=== PATIENT | male | born 1960 | race Caucasian/White ===

== ENCOUNTER 2024-02-03 15:14 | Inpatient (IN) ==
[2024-02-03] MEDS ORDERED: IOPAMIDOL 100 ML BOTTLE IV ONE (15:15)
[2024-02-03] MEDS: ASPIRIN 81 MG TAB.CHEW CHEWED ONE (15:38)
[2024-02-03] MEDS: NITROGLYCERIN 0.4 MG TAB.SUBL SL ONE (15:38)
[2024-02-03 15:47] LABS: Basophils # (Auto) 0.02 K/mcL (0.00-0.30); Basophils % (Auto) 0.2 % (0.0-2.0); Eosinophils # (Auto) 0.08 K/mcL (0.00-0.70); Eosinophils % (Auto) 0.9 % (0.0-7.0); Hematocrit 55.5 % (40.1-51.0); Hemoglobin 19.2 g/dL (13.7-17.5); Lymphocytes # (Auto) 2.44 K/mcL (1.50-4.80); Lymphocytes % (Auto) 27.6 % (15.5-49.0); Mean Cell Volume 89.8 fL (80.0-100.0); Mean Corpuscular HGB Conc 34.6 g/dL (31.0-36.0); Mean Platelet Volume 10.4 fL (8.8-12.5); Monocytes # (Auto) 0.73 K/mcL (0.10-0.90); Monocytes % (Auto) 8.2 % (1.0-12.0); Neutrophils % (Auto) 62.9 % (38.0-78.0); Platelet Count 195 K/mcL (140-440); RBC 6.18 M/mcL (4.63-6.08); Red Cell Distribution Width 12.5 % (11.5-14.5); WBC 8.9 K/mcL (4.5-11.0)
[2024-02-03 16:34] LABS: proBNP < 36.0 pg/mL (<125.0)
[2024-02-03 16:36] LABS: Prothrombin Time 13.5 sec (11.9-14.5)
[2024-02-03 16:37] LABS: ALT/SGPT 49 U/L (<40); AST/SGOT 28 U/L (<40); Albumin 4.2 gm/dL (3.2-5.2); Albumin/Globulin Ratio 1.6 (1.0-2.3); Alkaline Phosphatase 89 U/L (39-117); Bilirubin,Total 1.2 mg/dL (0.1-1.0); Blood Urea Nitrogen 8 mg/dL (8-23); Calcium 9.1 mg/dL (8.6-10.4); Carbon Dioxide 23 mmol/L (22-30); Chloride 102 mmol/L (96-108); Globulin 2.6 gm/dL (2.2-3.7); Glomerular Filtration Rate 92; Glucose 210 mg/dL (70-105); Potassium 3.9 mmol/L (3.3-5.1); Sodium 138 mmol/L (133-145)
[2024-02-03] MEDS: fentaNYL 100 MCG/2 ML VIAL IV ONE ×2 (16:44→19:15)
[2024-02-03] MEDS: NITROGLYCERIN/D5W 25 MG/250 ML BOTTLE IV SCH (17:43)
[2024-02-03] MEDS: 0.9 % SODIUM CHLORIDE 250 ML IV SCH (17:44)
[2024-02-03] MEDS: MAG HYDROX/AL HYDROX/SIMETH 30 ML ORAL.SUSP PO ONE (19:15)
[2024-02-03] MEDS: PANTOPRAZOLE 40 MG VIAL IV ONE (19:15)
[2024-02-03] MEDS: KETOROLAC 30 MG/ML VIAL IV ONE (19:16)
[2024-02-03] MEDS: ONDANSETRON 4 MG/2 ML VIAL IV ONE ×2 (20:34→20:49)
[2024-02-03] MEDS ORDERED: DEXTROSE 50% 50 ML VIAL IV PRN (21:15)
[2024-02-03] MEDS ORDERED: LACTULOSE 20 GM/30 ML ORAL.SOL PO PRN (21:15)
[2024-02-03] MEDS ORDERED: KETOROLAC 15 MG/ML VIAL IV PRN (21:15)
[2024-02-03] MEDS ORDERED: SENNOSIDES 1 TABLET PO PRN (21:15)
[2024-02-03] MEDS ORDERED: DEXTROSE 31 GM ORAL.SUSP PO PRN (21:15)
[2024-02-03] MEDS: INSULIN LISPRO 1 UNIT/0.01 ML UNIT SQ SCH (21:35)
[2024-02-03] MEDS: DOCUSATE SODIUM 100 MG CAPSULE PO SCH (21:39)
[2024-02-03] MEDS: LISINOPRIL 5 MG TABLET PO SCH (21:40)
[2024-02-03] MEDS: ACETAMINOPHEN 325 MG TABLET PO PRN (21:40)
[2024-02-03] MEDS: niCARdipine 25 MG in 0.9 % SODIUM CHLORIDE 240 ML IV SCH (22:16)
[2024-02-03] MEDS: 0.9 % SODIUM CHLORIDE 10 ML SYRINGE IV SCH (22:28)
[2024-02-03 23:31] LABS: Appearance,Urine CLEAR (Clear); Bilirubin,Urine Negative (Negative); Color,Urine YELLOW; Glucose,Urine (UA) >=500 mg/dL (Negative); Ketones,Urine Negative (Negative); Leukocyte Esterase,Urine Negative /uL (Negative); Mucus,Urine FEW /hpf; Nitrate,Urine Negative (Negative); Protein,Urine Negative (Negative); Specific Gravity,Urine 1.055 (1.000-1.035); Urine Blood Negative (Negative); Urine RBC < 1 /hpf (0-3); Urine Squamous Epithelial Cell < 1 /hpf (0-4); Urine WBC 0 /hpf (0-4); Urobilinogen,Urine Negative
[2024-02-03 23:50] LABS: Amphetamine Screen,Urine None detected; Barbiturate Screen,Urine None detected; Benzodiazepines Screen,Urine None detected; Cannabinoid Screen,Urine None detected; Cocaine Screen,Urine None detected; Fentanyl, Urine Screen Suspect Positive; Opiate Screen,Urine None detected; Oxycodone, Urine Screen None detected; Phencyclidine Screen,Urine None detected
[2024-02-04] MEDS: fentaNYL 100 MCG/2 ML VIAL IV PRN (02:30)
[2024-02-04 06:04] LABS: Basophils # (Auto) 0.02 K/mcL (0.00-0.30); Basophils % (Auto) 0.3 % (0.0-2.0); Eosinophils # (Auto) 0.19 K/mcL (0.00-0.70); Eosinophils % (Auto) 2.4 % (0.0-7.0); Hematocrit 48.9 % (40.1-51.0); Hemoglobin 16.8 g/dL (13.7-17.5); Lymphocytes # (Auto) 2.91 K/mcL (1.50-4.80); Lymphocytes % (Auto) 37.1 % (15.5-49.0); Mean Cell Volume 91.6 fL (80.0-100.0); Mean Corpuscular HGB Conc 34.4 g/dL (31.0-36.0); Mean Platelet Volume 10.5 fL (8.8-12.5); Monocytes # (Auto) 0.77 K/mcL (0.10-0.90); Monocytes % (Auto) 9.8 % (1.0-12.0); Neutrophils % (Auto) 50.3 % (38.0-78.0); Platelet Count 170 K/mcL (140-440); RBC 5.34 M/mcL (4.63-6.08); Red Cell Distribution Width 12.5 % (11.5-14.5); WBC 7.8 K/mcL (4.5-11.0)
[2024-02-04 06:30] LABS: ALT/SGPT 45 U/L (<40); AST/SGOT 32 U/L (<40); Albumin 3.8 gm/dL (3.2-5.2); Albumin/Globulin Ratio 1.7 (1.0-2.3); Alkaline Phosphatase 81 U/L (39-117); Bilirubin,Direct 0.4 mg/dL (<0.3); Bilirubin,Total 1.7 mg/dL (0.1-1.0); Blood Urea Nitrogen 8 mg/dL (8-23); Calcium 8.6 mg/dL (8.6-10.4); Carbon Dioxide 24 mmol/L (22-30); Chloride 102 mmol/L (96-108); Globulin 2.3 gm/dL (2.2-3.7); Glomerular Filtration Rate 96; Glucose 131 mg/dL (70-105); Lactate Dehydrogenase 123 U/L (135-225); Potassium 3.8 mmol/L (3.3-5.1); Sodium 137 mmol/L (133-145); Triglycerides 190 mg/dL (<150); Uric Acid 4.5 mg/dL (2.5-8.0)
[2024-02-04] MEDS: ONDANSETRON 4 MG/2 ML VIAL IV PRN (07:27)
[2024-02-04 12:05] VITALS: TEMP 97.8
[2024-02-04] MEDS: ENOXAPARIN 40 MG/0.4 ML SYRINGE SQ SCH (13:43)
[2024-02-04 13:51] VITALS: O2SAT 95
== END 2024-02-04 11:02 | disposition home or self-care (01) | DRG 305 ==
LOC: ED 15:14 → ICU 21:05
PROVIDERS: ADMIT Internal Medicine; ATTEND Internal Medicine